=== PATIENT | female | born 1935 | race Caucasian/White ===

== ENCOUNTER 2017-04-20 09:11 | Observation (INO) ==
[2017-04-20] MEDS ORDERED: cefOXitin 2,000 MG in Water for inj. (sterile) 10 ML IVP ONE (09:36)
[2017-04-20] MEDS ORDERED: Ringers Solution, Lactated 1,000 ML IVC SCH (09:45)
--- NOTE | 2017-04-20 11:11 | History & Physical Report ---
Date of Encounter: 04/20/17 Time of Encounter: 11:11 24 Hour HP Update - Instructions Instructions: If the History and Physical is less than 30 days old and was completed prior to A.M. admission and or procedure and has NOT been updated on calendar day of procedure please complete this update prior to performing procedure. - Update Patient reports changes in Medical Condition: No Changes in examination, assessment, or condition: No Changes in Medication: No Preop tests/diagnostics Reviewed: Yes Surgery Remains Indicated: Yes Consent for Planned Operative Procedure(s) Verified: Yes - Pre-Operative Checklist Preoperative Checklist Indicated: Yes Prophylactic Antibiotic Ordered: Yes Home Medications Include Beta Samaria: No
[2017-04-20] MEDS ORDERED: *HR* Propofol 200 MG/20 ML VIAL IVP ONE (11:17)
--- NOTE | 2017-04-20 11:17 | Anesthesia Evaluation PreOp ---
Date of Encounter: 04/20/17 Time of Encounter: 11:15 - Past History Planned Operation: colostomy reversal Cardiac History: Denies any Significant Hx Pulmonary History: Denies Any Significant HX NON DESTRUCTIVE TESTING INSPECTOR History: Denies Any Significant HX Other Medical History: GERD Anesthesia History: No Prior Anesthetic Complications, Past Anesthesia ( colostomy 12/13) Alcohol Use: none Drug use: none Medications and Allergies Acetylcysteine [M-Yellbf-k-Cysteine] 600 mg PO DAILY 04/20/17 [History] Ascorbate Calcium [Vitamin C] 500 mg PO DAILY 04/20/17 [History] Ascorbate Calcium/Bioflavonoid [Piper-C 500 mg Tablet] 1 tab PO DAILY 04/20/17 [ History] Aspirin 81 mg PO DAILY 04/20/17 [History] Biotin 1 mg PO DAILY 04/20/17 [History] Calcium Carbonate/Vitamin D3 [Calcium 600 + Vit D Tablet] 1 tab PO DAILY [History] Cholecalciferol (D-3) [Vitamin D] 1,000 unit PO DAILY 04/20/17 [History] Cranberry Fruit Extract [Cranberry] 425 mg PO DAILY 04/20/17 [History] Glucosamine HCl/Chondr Castillo A Na [Cvs Glucosamine-Chondr Tablet] 1 tab PO DAILY [History] Lactobacillus Acidophilus [Acidophilus Probiotic] 1 mg PO DAILY 04/20/17 [ History] Lecithin 1,200 mg PO DAILY 04/20/17 [History] Lutein [Natural Lutein] 20 mg PO DAILY 04/20/17 [History] Lycopene 10 mg PO DAILY 04/20/17 [History] M-17/Nettle/[place]umpk/Saw Palmet [Prostate Therapy Softgel] 1 tab PO DAILY 04/20/17 [History] Magnesium Oxide [Magnesium] 500 mg PO DAILY 04/20/17 [History] [place]-3/Dha/Epa/Fish Oil [Fish Oil 1,000 mg Softgel] 1 tab PO DAILY 04/20/17 [ History] Potassium 99 mg PO DAILY 04/20/17 [History] Primidone [Mysoline] 50 mg PO DAILY 04/20/17 [History] Vit A/Vit C/Vit E/Zinc/Copper [Preservision Areds Tablet] 1 tab PO DAILY [History] Vitamin E 1,000 unit PO DAILY 04/20/17 [History] Zinc [Zinc Lozenge] 50 mg PO DAILY 04/20/17 [History] 3 Allergy/AdvReac Type Severity Reaction Status Date / Time naproxen [From Naprosyn] Allergy Gastrointestinal Verified 04/20/17 09:33 Upset - Meds/Allergy Pre-op Review Medications Reviewed: Yes Allergies Reviewed: Yes Beta Blockers on Current Med List: No Anesthesia Results - Labs Laboratory Tests 04/11/17 04/11/17 04/11/17 09:07 09:07 09:07 Hgb 14.1 Hct 42.7 Sodium 138 Potassium 4.5 BUN 16 Creatinine 0.69 Anesthesia Exam Selected Entries 04/20/17 09:44 Temperature 97.8 F Pulse Rate 95 Respiratory Rate 16 Blood Pressure 149/91 O2 Sat by Pulse Oximetry 99 Weight: 42kg NPO (# of Hours): 8 - HEENT Pupil (Motor): EOMI Mallampati: II Teeth: Normal (lower), Prosthesis (partial upper) Oral Opening: Greater than 3 - NON DESTRUCTIVE TESTING INSPECTOR LOC: Oriented NON DESTRUCTIVE TESTING INSPECTOR Motor: Normal RUE, Normal LUE, Normal RLE, Normal LLE, Normal Face NON DESTRUCTIVE TESTING INSPECTOR Sensory: Normal: RUE, LUE, RLE, LLE, Face - Cardiac Rhythm: Regular Murmur: None - Pulmonary Breath Sounds: bilateral Clear Respiratory Effort: Symmetrical Anesthesia Assess/Plan ASA Score: 2 Modified Roland Scale for Level of Consciousness: Cooperative, oriented, and tranquil Anesthetic Plan: General Monitoring Plan: Standard Monitors Recovery Plan: PACU (discussed GA, agrees to proceed)
[2017-04-20] MEDS ORDERED: *HR* Succinylcholine 200 MG/10 ML VIAL IVP ONE (11:18)
[2017-04-20] MEDS ORDERED: Lidocaine -MPF 2% 2 ML VIAL ONE (11:18)
[2017-04-20] MEDS ORDERED: Dexamethasone 4 MG/ML VIAL ONE (11:18)
[2017-04-20] MEDS ORDERED: Ketorolac 30 MG/ML VIAL ONE (11:18)
[2017-04-20] MEDS ORDERED: *HR* Rocuronium Bromide 50 MG/5 ML VIAL ONE (11:18)
[2017-04-20] MEDS ORDERED: Ondansetron 4 MG/2 ML VIAL ONE (11:18)
[2017-04-20] MEDS ORDERED: Lidocaine -MPF 4% 5 ML AMPUL ONE (11:21)
[2017-04-20] MEDS ORDERED: *HR* HYDROmorphone (PF) 1 MG/ML SYRINGE IVP PRN ×2 (12:10→16:09)
[2017-04-20] MEDS ORDERED: Ondansetron 4 MG/2 ML VIAL IVP PRN ×2 (12:10→16:09)
[2017-04-20] MEDS ORDERED: *HR* HYDROmorphone 2 MG/ML SYRINGE ONE (13:05)
[2017-04-20] MEDS ORDERED: Neostigmine Methylsulfate 3 MG/3 ML SYRINGE ONE (13:44)
[2017-04-20] MEDS ORDERED: Naloxone 0.4 MG/ML INJ IVP PRN (16:09)
[2017-04-20] MEDS: 0.9 % Sodium Chloride 1,000 ML IVC SCH (16:45)
[2017-04-20] MEDS: *HR* Heparin 5,000 UNIT/ML VIAL SQ SCH (17:29)
[2017-04-21 00:47] LABS: Hematocrit 33.4 % (35.3-44.9); Hemoglobin 11.5 g/dL (11.5-15.4)
[2017-04-21 04:47] LABS: Basophils % 0.1 %; Hemoglobin 11.5 g/dL (11.5-15.4); Immature Granulocytes % 0.5 % (0-4); Lymphocytes # 0.6 K/mcL (0.6-4.6); Lymphocytes % 4.7 %; Mean Corpuscular HGB Conc 33.8 g/dL (31.6-35.5); Mean Corpuscular Hemoglobin 31.4 pg (28.0-33.3); Mean Corpuscular Volume 92.9 fL (83.0-100.0); Mean Platelet Volume 9.3 fL (9.4-12.4); Monocytes # 1.3 K/mcL (0.0-1.3); Monocytes % 10.8 %; Neutrophils # 10.2 K/mcL (1.6-8.9); Platelet Count 212 K/mcL (140-400); Red Blood Count 3.66 M/mcL (3.82-4.97); Red Cell Distribution Width 13.2 % (11.5-14.5); Segmented Neutrophils % 83.9 %
[2017-04-21 04:58] LABS: BUN/Creatinine Ratio 15 (6-26); Blood Urea Nitrogen 9 mg/dL (7-20); Calcium 8.4 mg/dL (8.6-10.8); Carbon Dioxide 25 mEq/L (19-29); Chloride 105 mEq/L (98-109); Glucose 117 mg/dL (70-99); Osmolality,Calculated 282 (280-300); Potassium 3.5 mEq/L (3.5-4.5); Sodium 136 mEq/L (136-145); eGFR For African Americans > 60 (> 60); eGFR For Non-African Americans > 60 (> 60)
[2017-04-21] MEDS: *HR* Heparin 5,000 UNIT/ML VIAL SQ SCH (06:10)
[2017-04-21] MEDS: 0.9 % Sodium Chloride 1,000 ML IVC SCH (06:10)
--- NOTE | 2017-04-21 09:52 | Discharge Summary ---
Outpatient Proc Discharge Plan - Plan Additional Instructions: Pt may have full liguids. Pt may shower. Pt should avoid driving for the next 7 days. Pt to follow up in the office in 2 weeks. Prescriptions: Acetaminophen [Tylenol] 500 mg PO Q6HR #20 tablet Home Medications: Acetylcysteine [O-Dmoyjx-h-Cysteine] 600 mg PO DAILY 04/20/17 [History] Ascorbate Calcium [Vitamin C] 500 mg PO DAILY 04/20/17 [History] Ascorbate Calcium/Bioflavonoid [Piper-C 500 mg Tablet] 1 tab PO DAILY 04/20/17 [ History] Aspirin 81 mg PO DAILY 04/20/17 [History] Biotin 1 mg PO DAILY 04/20/17 [History] Calcium Carbonate/Vitamin D3 [Calcium 600 + Vit D Tablet] 1 tab PO DAILY [History] Cholecalciferol (D-3) [Vitamin D] 1,000 unit PO DAILY 04/20/17 [History] Cranberry Fruit Extract [Cranberry] 425 mg PO DAILY 04/20/17 [History] Glucosamine HCl/Chondr Castillo A Na [Cvs Glucosamine-Chondr Tablet] 1 tab PO DAILY [History] Lactobacillus Acidophilus [Acidophilus Probiotic] 1 mg PO DAILY 04/20/17 [ History] Lecithin 1,200 mg PO DAILY 04/20/17 [History] Lutein [Natural Lutein] 20 mg PO DAILY 04/20/17 [History] Lycopene 10 mg PO DAILY 04/20/17 [History] M-17/Nettle/Pumpk/Saw Palmet [Prostate Therapy Softgel] 1 tab PO DAILY 04/20/17 [History] Magnesium Oxide [Magnesium] 500 mg PO DAILY 04/20/17 [History] [place]-3/Dha/Epa/Fish Oil [Fish Oil 1,000 mg Softgel] 1 tab PO DAILY 04/20/17 [ History] Potassium 99 mg PO DAILY 04/20/17 [History] Primidone [Mysoline] 50 mg PO DAILY 04/20/17 [History] Vit A/Vit C/Vit E/Zinc/Copper [Preservision Areds Tablet] 1 tab PO DAILY [History] Vitamin E 1,000 unit PO DAILY 04/20/17 [History] Zinc [Zinc Lozenge] 50 mg PO DAILY 04/20/17 [History] Acetaminophen [Tylenol] 500 mg PO Q6HR #20 tablet 04/21/17 [Rx]
--- NOTE | 2017-04-21 11:20 | Operative Note ---
Date of procedure: 04/20/17 Pre-op diagnosis: History of perforated sigmoid diverticulitis Post-op diagnosis: same Procedure: Robotic takedown colostomy with 29 mm EEA stapling Anesthesia: BRUCE Surgeon: Amandeep Vazquez Estimated blood loss (cc): 5 Condition: stable Disposition: floor Procedure in Detail: After informed consent, patient was taken the operating room placed in a supine position. After adequate sedation anesthesia the abdomen was prepped and draped. The end colostomy was oversewn 3-0 silk suture. A camera port was placed just right of the umbilicus. Pneumoperitoneum was established. 13 mm cannulas placed in the right lower quadrant. 2 additional 8 mm cannulas were placed in the subxiphoid region left abdomen. 5 mm assistance port was placed in the right abdomen. Small bowel was then swept out of the pelvis. Has able to identify the rectum. Sequential dilators were used to dilate the rectum and the sigmoid colon. Once it had been adequately identified and then the end colostomy was taken down from the skin. The mucosa of the end colostomy was resected with sharp dissection. A pursestring 3-0 Prolene suture was placed with a pursestring device. A 29 mm EEA anvil was placed in the colon tied and secured. This was dropped back within the abdomen. Fascial defect was closed with looped PDS suture and kirsty. The 29 mm EEA anvil was then connected to the spear of the 29 mm stapling device. This is done at the proximal rectum. Once connected it was secured and fired. There were 2 excellent donuts identified. A intraoperative flexible sigmoidoscopy was performed to evaluate the anastomosis and check for leak. None was identified. There was an excellent anastomosis secured. At this point procedure was terminated. The ports are removed. Skin was closed with 4-0 Vicryl suture and the fascia was closed with no Vicryl suture. Marcaine was placed in the incision sites. She was taken to the floor in excellent condition.
[2017-04-21 13:59] VITALS: BP 117/74
--- NOTE | 2017-04-28 16:00 | Event Note ---
Date of Encounter: 04/28/17 Time of Encounter: 16:00 Pt discharged after an observation stay.
== END 2017-04-21 17:25 | disposition home or self-care (01) ==
LOC: SAMDAY 09:11 → INTOOBSV 15:20 → 3ANU 15:20
PROVIDERS: ADMIT Surgery; ATTEND Surgery

== ENCOUNTER 2018-09-15 22:27 | Inpatient (IN) ==
[2018-09-15 23:05] LABS: Basophils % 0.2 %; Eosinophils % 0.1 %; Hematocrit 42.5 % (35.3-44.9); Hemoglobin 14.2 g/dL (11.5-15.4); Immature Granulocytes % 0.5 % (0-4); Lymphocytes # 0.6 K/mcL (0.6-4.6); Lymphocytes % 4.7 %; Mean Corpuscular HGB Conc 33.4 g/dL (31.6-35.5); Mean Corpuscular Hemoglobin 32.2 pg (28.0-33.3); Mean Corpuscular Volume 96.4 fL (83.0-100.0); Mean Platelet Volume 9.3 fL (9.4-12.4); Monocytes % 7.7 %; Neutrophils # 11.2 K/mcL (1.6-8.9); Platelet Count 254 K/mcL (140-400); Red Blood Count 4.41 M/mcL (3.82-4.97); Red Cell Distribution Width 13.7 % (11.5-14.5); Segmented Neutrophils % 86.8 %
[2018-09-15] MEDS ORDERED: *HR* FentaNYL (PF) 100 MCG/2 ML VIAL IVP ONE ×2 (23:10→23:11)
[2018-09-15] MEDS ORDERED: Ondansetron 4 MG/2 ML VIAL IVP ONE (23:10)
[2018-09-15] MEDS ORDERED: Isovue-370 500 ML BOTTLE IVP ONE (23:10)
--- NOTE | 2018-09-15 23:14 | Emergency Department Note ---
Disposition Clinical Impression: Cecal volvulus Disposition: Admitted As Inpatient Condition: Undetermined Abdominal Pain HPI - General Chief Complaint: ED Abdominal Pain Stated Complaint: ABD Pain Time Seen by Provider: 09/15/18 22:52 Nursing Notes Reviewed: Yes Vital Signs Reviewed: Yes - History of Present Illness HPI Narrative: 83-year-old female with past medical history including bowel perforation and bowel abscess status post surgery at [facility] 2 and half years ago, brain t umor, history of diverticulitis presenting with chief complaint of abdominal pain. The patient complains of generalized abdominal pain for the past 2 days. She states it is progressively worsening and feels sharp at times. She has nausea but no vomiting. Denies fevers or chills, dysuria, hematuria, diarrhea, constipation, hematochezia, melena. She states she had a normal bowel movement 2 hours ago. She has not eaten anything today and has only had small sips of water. Patient thinks she has diverticulitis. Pain Scale: 10 - Related Data Home Medications Medication Instructions Recorded Confirmed Acetylcysteine 600 mg PO DAILY 04/20/17 04/20/17 [Y-Xwxerl-l-Cysteine] Ascorbate Calcium [Vitamin C] 500 mg PO DAILY 04/20/17 04/20/17 Ascorbate Calcium/Bioflavonoid 1 tab PO DAILY 04/20/17 04/20/17 [Piper-C 500 mg Tablet] Aspirin 81 mg PO DAILY 04/20/17 04/20/17 Biotin 1 mg PO DAILY 04/20/17 04/20/17 Calcium Carbonate/Vitamin D3 1 tab PO DAILY 04/20/17 04/20/17 [Calcium 600 + Vit D Tablet] Cholecalciferol (D-3) [Vitamin D] 1,000 unit PO DAILY 04/20/17 04/20/17 Cranberry Fruit Extract [Cranberry] 425 mg PO DAILY 04/20/17 04/20/17 Glucosamine HCl/Chondr Castillo A Na 1 tab PO DAILY 04/20/17 04/20/17 [Cvs Glucosamine-Chondr Tablet] Lactobacillus Acidophilus 1 mg PO DAILY 04/20/17 04/20/17 [Acidophilus Probiotic] Lecithin 1,200 mg PO DAILY 04/20/17 04/20/17 Lutein [Natural Lutein] 20 mg PO DAILY 04/20/17 04/20/17 Lycopene 10 mg PO DAILY 04/20/17 04/20/17 M-17/Nettle/Pumpk/Saw Palmet 1 tab PO DAILY 04/20/17 04/20/17 [Prostate Therapy Softgel] Magnesium Oxide [Magnesium] 500 mg PO DAILY 04/20/17 04/20/17 [place]-3/Dha/Epa/Fish Oil [Fish Oil 1 tab PO DAILY 04/20/17 04/20/17 1,000 mg Softgel] Potassium 99 mg PO DAILY 04/20/17 04/20/17 Primidone [Mysoline] 50 mg PO DAILY 04/20/17 04/20/17 Vit A/Vit C/Vit E/Zinc/Copper 1 tab PO DAILY 04/20/17 04/20/17 [Preservision Areds Tablet] Vitamin E 1,000 unit PO DAILY 04/20/17 04/20/17 Zinc [Zinc Lozenge] 50 mg PO DAILY 04/20/17 04/20/17 Previous Rx's Medication Instructions Recorded Acetaminophen [Tylenol] 500 mg PO Q6HR #20 tablet 04/21/17 Allergies Allergy/AdvReac Type Severity Reaction Status Date / Time naproxen [From Naprosyn] Allergy Gastrointestinal Verified 09/15/18 22:36 Upset All systems ED: reviewed and negative except as stated. Review of Systems: As Per HPI Constitutional: Denies: fever, chills ENT ED: Denies: congestion Cardiovascular: Denies: chest pain, palpitations Respiratory: Denies: cough, dyspnea Gastrointestinal: Reports: abdominal pain, nausea. Denies: vomiting, diarrhea, melena, hematochezia Neurological: Denies: headache, weakness Abdominal Pain PMH - Past Medical History Medical history: Reports: GERD, other Female Surgical History: Reports: no surgical history Psychiatric history: Reports: no psych history - Social History Smoking status: Never smoker Alcohol use: Reports: none Drug use: Reports: none Physical Exam - General Limitations: no limitations General appearance: alert, in no apparent distress - Head Head exam: atraumatic, normocephalic, normal inspection - Eye Eye exam: Present: normal appearance, EOMI - ENT ENT exam: normal exam, mucous membranes moist - Neck Neck exam: Present: normal inspection, trachea midline - Chest Chest inspection: Present: normal inspection, symmetric chest wall rise - Respiratory Respiratory exam: Present: normal lung sounds bilaterally. Absent: respiratory distress, wheezes - Cardiovascular Cardiovascular exam: Present: regular rate, normal rhythm, normal heart sounds - Abdominal Exam Abdominal exam: Present: other (Generalized abdominal tenderness, worse in the right lower quadrant. No distention, guarding, rebound) - Extremities Exam Extremities exam: Present: normal capillary refill. Absent: calf tenderness - Neurological Exam Neurological exam: Present: alert, oriented X3 - Psychiatric Psychiatric exam: Present: normal affect, normal mood - Skin Skin exam: Present: warm, dry, intact. Absent: diaphoresis, pallor Course Vital Signs Temperature 97.9 F 09/15/18 22:36 Pulse Rate 76 09/15/18 22:36 Respiratory Rate 18 09/15/18 22:36 Blood Pressure 161/81 09/15/18 22:36 O2 Sat by Pulse Oximetry 97 09/15/18 22:36 Temperature 97.9 F 09/15/18 23:13 Pulse Rate 78 09/16/18 02:38 Respiratory Rate 18 09/16/18 02:38 Blood Pressure 147/68 09/16/18 02:38 O2 Sat by Pulse Oximetry 96 09/16/18 02:38 Oxygen Delivery Oxygen Delivery Room Air Abdominal Pain - MDM Narrative Medical decision making narrative: Patient has history of bowel perforation and abscess, history of diverticulitis. She is presenting with generalized abdominal pain for the past 2 days. She does have normal bowel movements. She has nausea without vomiting. She is afebrile, normal vital signs. We will give the patient Zofran and fentanyl. We will check CT abdomen and pelvis with IV contrast to evaluate for acute pathol ogy. We will check lab work as well. The patient was pointing to her chest as well however denied chest pain. She has no coronary artery disease, his never had catheterization with stent placements. We will obtain EKG, troponin, chest x-ray as well to rule out ACS. 02:50 Labwork reviewed. Mild leukocytosis. BUN and creatinine are normal. Hepatic panel, lipase are normal. Troponin is less than 0.03. CT results and imaging reviewed. 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 There is small volume of intra-abdominal and pelvic ascites which may be related to this. Patient also has incidental finding of a nonspecific low-attenuation structure identified within the left hepatic lobe. She may require further imaging with MRI of the liver. D/w surgery, Dr. Jacob, who will admit the patient to his services. Patient is NPO. Will give IVFs. Patient states her nausea is much improved and states she has mild pain and does not want anything for pain at this time. Please update patient's niece, Aniya Canseco at [phone] or [phone] - Medical Records Medical records reviewed: Yes I reviewed the patient's medical records. - Lab Data Lab results reviewed: Yes I reviewed the patient's lab results. Result diagrams: 09/15/18 22:54 09/15/18 22:54 Lab Results 09/15/18 09/15/18 09/16/18 Range/Units 22:54 22:54 00:05 WBC 12.9 H (4.3-11.1) K/mcL RBC 4.41 (3.82-4.97) M/mcL Hgb 14.2 (11.5-15.4) g/dL Hct 42.5 (35.3-44.9) % MCV 96.4 (83.0-100.0) fL MCH 32.2 (28.0-33.3) pg MCHC 33.4 (31.6-35.5) g/dL RDW 13.7 (11.5-14.5) % Plt Count 254 (140-400) K/mcL MPV 9.3 L (9.4-12.4) fL Immature Gran % 0.5 (0-4) % Seg Neutrophils % 86.8 % Lymphocytes % 4.7 % Monocytes % 7.7 % Eosinophils % 0.1 % Basophils % 0.2 % Neutrophils # 11.2 H (1.6-8.9) K/mcL Lymphocytes # 0.6 (0.6-4.6) K/mcL Monocytes # 1.0 (0.0-1.3) K/mcL Eosinophils # 0.0 (0.0-0.6) K/mcL Basophils # 0.0 (0.0-0.2) K/mcL Sodium 134 L (136-145) mEq/L Potassium 3.8 (3.5-5.1) mEq/L Chloride 98 (98-107) mEq/L Carbon Dioxide 26 (23-29) mEq/L BUN 18 (8-23) mg/dL Creatinine 0.62 (0.60-1.20) mg/dL Est GFR ( Amer) > 60 (> 60) Est GFR (Non-Af Amer) > 60 (> 60) BUN/Creatinine Ratio 29 H (6-26) Glucose 159 H (70-105) mg/dL Calculated Osmolality 283 (280-300) Calcium 9.8 (8.6-10.3) mg/dL Total Bilirubin 0.5 (0.3-1.0) mg/dL Direct Bilirubin 0.1 (0.0-0.2) mg/dL Indirect Bilirubin 0.4 (0.0-1.2) mg/dL AST 25 (13-39) Units/L ALT 18 (7-52) Units/L Alkaline Phosphatase 68 (34-104) Units/L Troponin I 0.03 (< 0.04) ng/mL Serum Total Protein 7.4 (6.4-8.9) g/dL Albumin 4.3 (3.5-5.7) g/dL Globulin 3.1 (2.4-3.5) g/dL Albumin/Globulin Ratio 1.4 (1.1-2.2) Amylase 43 (29-103) Units/L Lipase 38 (11-82) Units/L Urine Color Yellow (Yellow) Urine Clarity Clear (Clear) Urine pH 6.0 (5.0-8.0) pH Units Ur Specific [place] 1.017 (1.010-1.025) Urine Protein Negative (Neg-Trace) mg/dL Urine Glucose (UA) Normal (Normal) mg/dL Urine Ketones Trace H (Negative) mg/dL Urine Blood Negative (Negative) Urine Nitrite Negative (Negative) Urine Bilirubin Negative (Negative) Urine Urobilinogen Normal (Normal) mg/dL Ur Leukocyte Esterase Negative (Negative) Ur Culture Indicated? NO (NO) - Radiology Data Radiology results reviewed: Yes I reviewed the patient's radiology results. 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 There is also a small volume of intra-abdominal and pelvic ascites which may be related to this as well. No perforation. There is a nonspecific low-attenuation structure identified within the left hepatic lobe measuring 3.2 x 3.1 cm in size, and 57 Hounsfield units which does not meet criteria for a simple cyst. No internal gas is seen to suggest a definite abscess. Differential considerations would include sequela of prior intra-surgery or trauma, complex cyst or neoplastic process. This would be best assessed with MR imaging of the liver, or if unable to undergo MRI, CT imaging to assess for enhancement. Clustered cystic change noted within the pancreatic head, similar to the previous study. These could possibly be related to IPMNs, and would also be best assessed with multiphase MR imaging. D/ / Scott Davalos MD / Scott Davalos MD Interpreting Provider: Scott Davalos MD - EKG Data EKG attestation: Yes I reviewed and interpreted this EKG. EKG results narrative: EKG obtained at 2244 shows sinus rhythm with heart rate 88. AK interval 147. QRS duration 80, QTc 416. No ST elevation or depression. T-wave inversion in lead 3. Attestation Statement - Attestation Attestation: I, Cecil Pozo DO, examined this patient [id number] and my medical decision-making was reviewed with Dr. Lupe Holland , Resident Physician. I agree with the documented findings, disposition and treatment plan as described except to the extent set forth below. I personally supervised and was present for the morgan/critical portions of the procedures completed by the resident documented below. Please see my progress notes for details.
[2018-09-15 23:33] LABS: Alanine Aminotransferase 18 Units/L (7-52); Albumin 4.3 g/dL (3.5-5.7); Albumin/Globulin Ratio 1.4 (1.1-2.2); Alkaline Phosphatase 68 Units/L (34-104); Amylase 43 Units/L (29-103); Aspartate Amino Transferase 25 Units/L (13-39); BUN/Creatinine Ratio 29 (6-26); Bilirubin,Direct 0.1 mg/dL (0.0-0.2); Bilirubin,Indirect 0.4 mg/dL (0.0-1.2); Bilirubin,Total 0.5 mg/dL (0.3-1.0); Blood Urea Nitrogen 18 mg/dL (8-23); Calcium 9.8 mg/dL (8.6-10.3); Carbon Dioxide 26 mEq/L (23-29); Chloride 98 mEq/L (98-107); Globulin 3.1 g/dL (2.4-3.5); Glucose 159 mg/dL (70-105); Lipase 38 Units/L (11-82); Osmolality,Calculated 283 (280-300); Potassium 3.8 mEq/L (3.5-5.1); Sodium 134 mEq/L (136-145); Total Protein 7.4 g/dL (6.4-8.9); Troponin I 0.03 ng/mL (< 0.04); eGFR For Non-African Americans > 60 (> 60)
[2018-09-16 00:19] LABS: Bilirubin,Urine Negative (Negative); Blood,Urine Negative (Negative); Clarity,Urine Clear (Clear); Color,Urine Yellow (Yellow); Glucose,Urine (UA) Normal (Normal); Ketones,Urine Trace mg/dL (Negative); Leukocyte Esterase,Urine Negative (Negative); Nitrite,Urine Negative (Negative); Protein,Urine Negative (Neg-Trace); Specific Gravity,Urine 1.017 (1.010-1.025); Urobilinogen,Urine Normal (Normal)
--- NOTE | 2018-09-16 00:58 | Emergency Department Note ---
Disposition Clinical Impression: Cecal volvulus Abdominal pain Qualifiers: Abdominal location: generalized Qualified Code(s): R10.84 - Generalized abdominal pain Disposition: Admitted As Inpatient Condition: Fair Time of Disposition: 03:26 General Adult HPI - General Chief complaint: ED Abdominal Pain Stated complaint: ABD Pain Time Seen by Provider: 09/15/18 22:52 Source: patient, family Limitations: no limitations - History of Present Illness Pain Scale: 8 - Related Data Home Medications Medication Instructions Recorded Confirmed Acetylcysteine 600 mg PO DAILY 04/20/17 04/20/17 [F-Uhmrut-y-Cysteine] Ascorbate Calcium [Vitamin C] 500 mg PO DAILY 04/20/17 04/20/17 Ascorbate Calcium/Bioflavonoid 1 tab PO DAILY 04/20/17 04/20/17 [Piper-C 500 mg Tablet] Aspirin 81 mg PO DAILY 04/20/17 04/20/17 Biotin 1 mg PO DAILY 04/20/17 04/20/17 Calcium Carbonate/Vitamin D3 1 tab PO DAILY 04/20/17 04/20/17 [Calcium 600 + Vit D Tablet] Cholecalciferol (D-3) [Vitamin D] 1,000 unit PO DAILY 04/20/17 04/20/17 Cranberry Fruit Extract [Cranberry] 425 mg PO DAILY 04/20/17 04/20/17 Glucosamine HCl/Chondr Castillo A Na 1 tab PO DAILY 04/20/17 04/20/17 [Cvs Glucosamine-Chondr Tablet] Lactobacillus Acidophilus 1 mg PO DAILY 04/20/17 04/20/17 [Acidophilus Probiotic] Lecithin 1,200 mg PO DAILY 04/20/17 04/20/17 Lutein [Natural Lutein] 20 mg PO DAILY 04/20/17 04/20/17 Lycopene 10 mg PO DAILY 04/20/17 04/20/17 M-17/Nettle/Pumpk/Saw Palmet 1 tab PO DAILY 04/20/17 04/20/17 [Prostate Therapy Softgel] Magnesium Oxide [Magnesium] 500 mg PO DAILY 04/20/17 04/20/17 [place]-3/Dha/Epa/Fish Oil [Fish Oil 1 tab PO DAILY 04/20/17 04/20/17 1,000 mg Softgel] Potassium 99 mg PO DAILY 04/20/17 04/20/17 Primidone [Mysoline] 50 mg PO DAILY 04/20/17 04/20/17 Vit A/Vit C/Vit E/Zinc/Copper 1 tab PO DAILY 04/20/17 04/20/17 [Preservision Areds Tablet] Vitamin E 1,000 unit PO DAILY 04/20/17 04/20/17 Zinc [Zinc Lozenge] 50 mg PO DAILY 04/20/17 04/20/17 Previous Rx's Medication Instructions Recorded Acetaminophen [Tylenol] 500 mg PO Q6HR #20 tablet 04/21/17 Allergies Allergy/AdvReac Type Severity Reaction Status Date / Time naproxen [From Naprosyn] Allergy Gastrointestinal Verified 09/15/18 22:36 Upset Constitutional: Denies: fever, chills ENT ED: Denies: congestion Cardiovascular: Denies: chest pain, palpitations Respiratory: Denies: cough, dyspnea Gastrointestinal: Reports: abdominal pain, nausea. Denies: vomiting, diarrhea, melena, hematochezia Neurological: Denies: headache, weakness Past Medical History - Past Medical History Medical history: Reports: GERD, other Surgical history: Reports: colectomy, colostomy Psychiatric history: Reports: no psych history TRAFFIC CONTROL TECHNICIAN history: Reports: no TRAFFIC CONTROL TECHNICIAN history - Social History Smoking Status: Never smoker Smokeless Tobacco Status: No Alcohol use: Reports: none Drug use: Reports: none Physical Exam - General Limitations: no limitations General appearance: alert, in no apparent distress Course Vital Signs Temperature 97.9 F 09/15/18 22:36 Pulse Rate 76 09/15/18 22:36 Respiratory Rate 18 09/15/18 22:36 Blood Pressure 161/81 09/15/18 22:36 O2 Sat by Pulse Oximetry 97 09/15/18 22:36 Temperature 97.9 F 09/15/18 23:13 Pulse Rate 78 09/16/18 02:38 Respiratory Rate 18 09/16/18 02:38 Blood Pressure 147/68 09/16/18 02:38 O2 Sat by Pulse Oximetry 96 09/16/18 02:38 Oxygen Delivery Oxygen Delivery Room Air Medical Decision Making - Lab Data Result diagrams: 09/15/18 22:54 09/15/18 22:54 Lab Results 09/15/18 09/15/18 09/16/18 Range/Units 22:54 22:54 00:05 WBC 12.9 H (4.3-11.1) K/mcL RBC 4.41 (3.82-4.97) M/mcL Hgb 14.2 (11.5-15.4) g/dL Hct 42.5 (35.3-44.9) % MCV 96.4 (83.0-100.0) fL MCH 32.2 (28.0-33.3) pg MCHC 33.4 (31.6-35.5) g/dL RDW 13.7 (11.5-14.5) % Plt Count 254 (140-400) K/mcL MPV 9.3 L (9.4-12.4) fL Immature Gran % 0.5 (0-4) % Seg Neutrophils % 86.8 % Lymphocytes % 4.7 % Monocytes % 7.7 % Eosinophils % 0.1 % Basophils % 0.2 % Neutrophils # 11.2 H (1.6-8.9) K/mcL Lymphocytes # 0.6 (0.6-4.6) K/mcL Monocytes # 1.0 (0.0-1.3) K/mcL Eosinophils # 0.0 (0.0-0.6) K/mcL Basophils # 0.0 (0.0-0.2) K/mcL PT (9.4-12.1) Seconds INR Sodium 134 L (136-145) mEq/L Potassium 3.8 (3.5-5.1) mEq/L Chloride 98 (98-107) mEq/L Carbon Dioxide 26 (23-29) mEq/L BUN 18 (8-23) mg/dL Creatinine 0.62 (0.60-1.20) mg/dL Est GFR ( Amer) > 60 (> 60) Est GFR (Non-Af Amer) > 60 (> 60) BUN/Creatinine Ratio 29 H (6-26) Glucose 159 H (70-105) mg/dL Calculated Osmolality 283 (280-300) Calcium 9.8 (8.6-10.3) mg/dL Total Bilirubin 0.5 (0.3-1.0) mg/dL Direct Bilirubin 0.1 (0.0-0.2) mg/dL Indirect Bilirubin 0.4 (0.0-1.2) mg/dL AST 25 (13-39) Units/L ALT 18 (7-52) Units/L Alkaline Phosphatase 68 (34-104) Units/L Troponin I 0.03 (< 0.04) ng/mL Serum Total Protein 7.4 (6.4-8.9) g/dL Albumin 4.3 (3.5-5.7) g/dL Globulin 3.1 (2.4-3.5) g/dL Albumin/Globulin Ratio 1.4 (1.1-2.2) Amylase 43 (29-103) Units/L Lipase 38 (11-82) Units/L Urine Color Yellow (Yellow) Urine Clarity Clear (Clear) Urine pH 6.0 (5.0-8.0) pH Units Ur Specific [place] 1.017 (1.010-1.025) Urine Protein Negative (Neg-Trace) mg/dL Urine Glucose (UA) Normal (Normal) mg/dL Urine Ketones Trace H (Negative) mg/dL Urine Blood Negative (Negative) Urine Nitrite Negative (Negative) Urine Bilirubin Negative (Negative) Urine Urobilinogen Normal (Normal) mg/dL Ur Leukocyte Esterase Negative (Negative) Ur Culture Indicated? NO (NO) 09/16/18 Range/Units 03:03 WBC (4.3-11.1) K/mcL RBC (3.82-4.97) M/mcL Hgb (11.5-15.4) g/dL Hct (35.3-44.9) % MCV (83.0-100.0) fL MCH (28.0-33.3) pg MCHC (31.6-35.5) g/dL RDW (11.5-14.5) % Plt Count (140-400) K/mcL MPV (9.4-12.4) fL Immature Gran % (0-4) % Seg Neutrophils % % Lymphocytes % % Monocytes % % Eosinophils % % Basophils % % Neutrophils # (1.6-8.9) K/mcL Lymphocytes # (0.6-4.6) K/mcL Monocytes # (0.0-1.3) K/mcL Eosinophils # (0.0-0.6) K/mcL Basophils # (0.0-0.2) K/mcL PT 10.9 (9.4-12.1) Seconds INR 1.0 Sodium (136-145) mEq/L Potassium (3.5-5.1) mEq/L Chloride (98-107) mEq/L Carbon Dioxide (23-29) mEq/L BUN (8-23) mg/dL Creatinine (0.60-1.20) mg/dL Est GFR ( Amer) (> 60) Est GFR (Non-Af Amer) (> 60) BUN/Creatinine Ratio (6-26) Glucose (70-105) mg/dL Calculated Osmolality (280-300) Calcium (8.6-10.3) mg/dL Total Bilirubin (0.3-1.0) mg/dL Direct Bilirubin (0.0-0.2) mg/dL Indirect Bilirubin (0.0-1.2) mg/dL AST (13-39) Units/L ALT (7-52) Units/L Alkaline Phosphatase (34-104) Units/L Troponin I (< 0.04) ng/mL Serum Total Protein (6.4-8.9) g/dL Albumin (3.5-5.7) g/dL Globulin (2.4-3.5) g/dL Albumin/Globulin Ratio (1.1-2.2) Amylase (29-103) Units/L Lipase (11-82) Units/L Urine Color (Yellow) Urine Clarity (Clear) Urine pH (5.0-8.0) pH Units Ur Specific [place] (1.010-1.025) Urine Protein (Neg-Trace) mg/dL Urine Glucose (UA) (Normal) mg/dL Urine Ketones (Negative) mg/dL Urine Blood (Negative) Urine Nitrite (Negative) Urine Bilirubin (Negative) Urine Urobilinogen (Normal) mg/dL Ur Leukocyte Esterase (Negative) Ur Culture Indicated? (NO) Attestation Statement - Attestation Attestation: I, Cecil Pozo DO, examined this patient [id number] and my medical decision-making was reviewed with Dr. Lupe Holland , Resident Physician. I agree with the documented findings, disposition and treatment plan as described except to the extent set forth below. I personally supervised and was present for the morgan/critical portions of the procedures completed by the resident documented below. Please see my progress notes for details. 82-year-old female presents emergency room for evaluation of abdominal pain that starts in the epigastrium and goes down into her lower abdomen. She denies any recent fevers or chills. Denies any nausea vomiting. Denies any chest pain or shortness of breath. She has not had any headache or vision change. Denies any falls trauma or injury. No recent illnesses noted at this point or travel outside the country. Patient makes all of her own food at home and does not yet restaurants. Vital signs otherwise currently stable. Patient is resting comfortably in the bed. She does not show any acute signs of distress or illness. Head is atraumatic. Oropharynx is patent. Trachea is midline. No stridor no trismus. Mucous membranes are slightly dry. Lungs are clear. Heart is regular. Abdomen is soft with mild tenderness in the epigastrium that radiates in the lower abdomen. Bowel sounds are present. There is no guarding no rigidity no peritoneal symptoms. No point tenderness. No CVA tenderness. Patient denies any vaginal discharge or bleeding. She denies any burning with urination or changes in her bowel habits outside of loose stool. Extremities are normal. No rashes or lesions noted at this time. Patient is concerning for intra-abdominal pathology including peptic ulcer, pancreatitis, diverticular disease or bowel related issue. EKG and chest x-ray will also be collected to rule out any cardiac or pulmonary related issues. Dimension control nausea medication pain medication will be given as needed. See detailed documentation the physical exam, medical intervention, medical decision-making and disposition in the resident physician's note. No critical care pad the patient's treatment course at this time. 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 Based on her history of diverticulitis and colon resection with reversal, surgical consultation was placed. The surgeon on-call Dr. Jacob reviewed the case and was going to the patient primarily to his service for surgical intervention management. No antibiotics were requested at this point. Detailed review the presentation symptoms were discussed. Patient is otherwise clinically stable. Admission process to be established at this time. Patient's labs otherwise unremarkable and do not need immediate intervention. Patient's family was informed. Patient will be monitored here in the emergency department to the admission process is completed. Patient has lactic acid and coagulation studies added on at this time. No other acute signs of decompensation or requirement for medical intervention were reviewed at this point. Patient will be monitored here in the emergency department is admission process is completed.
[2018-09-16] MEDS ORDERED: 0.9 % Sodium Chloride 1,000 ML IVC ONE (02:55)
[2018-09-16] MEDS ORDERED: Ondansetron 4 MG/2 ML VIAL IVP PRN (03:05)
[2018-09-16] MEDS ORDERED: MORPHINE SUL Oral CONC 10 MG/0.5 ML ORAL.SYG SL PRN (03:05)
[2018-09-16 03:24] LABS: Prothrombin Time 10.9 Seconds (9.4-12.1)
[2018-09-16] MEDS ORDERED: Ondansetron 4 MG/2 ML VIAL IVP ONE (03:42)
[2018-09-16] MEDS ORDERED: *HR* FentaNYL (PF) 100 MCG/2 ML VIAL IVP ONE (03:42)
[2018-09-16] MEDS: 0.9 % Sodium Chloride 1,000 ML IVC SCH ×3 (05:25→13:24)
[2018-09-16] MEDS ORDERED: *HR* Heparin 5,000 UNIT/ML VIAL SQ SCH (06:00)
[2018-09-16] MEDS ORDERED: Pantoprazole 40 MG VIAL IVP SCH (06:30)
--- NOTE | 2018-09-16 07:28 | Acute Care Surgery H&P ---
Date of Encounter: 09/16/18 Time of Encounter: 07:25 Assessment and Plan (1) Cecal volvulus Current Visit: Yes Status: Acute The assessment and plan as outlined above was discussed with the patient and/or family members who expressed understanding and agreement. All questions were answered. I explained to the patient that I personally reviewed her CT scan images and report. There is concern about a possible colonic volvulus and given her pain symptoms and the abnormal CT scan findings I do think it would be appropriate to proceed with exploration and possible colonic resection. Risk and benefits discussed with the patient and she agrees with the above plan. History of Present Illness Chief complaint: Abdominal pain HPI: Ms. Olivas is a 83 year old female with a past medical history significant for Mccullough's Palsy, spinal stenosis, and GERD states that she has been having a bdominal pain for approximately 2 days. She points throughout her entire abdomen and states that initially she had some nausea but states that she did have what sounds like dry heaves with no copious amount of vomiting. She normally has a bowel movement twice a day and denies any diarrhea or const ipation symptoms. She states that she had a normal bowel movement yesterday evening. She denies any rectal bleeding. Because of her continued abdominal pain symptoms she presented to [facility] for further evaluation. Past Med Surg Social Fam HX - Past Medical History Medical history: GERD, other Additional medical history: bells palsey, spinal stenosis Psychiatric history: no psych history - Past Surgical History Surgical History: colectomy, colostomy Additional surgical history: Sigmoid resection/colostomy 2017, Colostomy reversal 2017 - Social History Smoking Status: Never smoker Smokeless Tobacco Status: No Alcohol use: none Drug use: none - Family History Father History Unknown: Yes Hx Family Cardiac Disorders: No Hx Family Respiratory Disorders: No Hx Family Cancer: Yes (colon CA) Hx Family GI Disorders: Yes (CA) Hx Family Endocrine Disorder: No Hx Family Neuromuscular Disorders: No Hx Family Neurologic Disorders: No Hx Family HEENT Disorders: No Hx Family Autoimmune Disorders: No Medications and Allergies Acetylcysteine [U-Umjzoo-l-Cysteine] 600 mg PO DAILY 04/20/17 [History] Ascorbate Calcium [Vitamin C] 500 mg PO DAILY 04/20/17 [History] Ascorbate Calcium/Bioflavonoid [Piper-C 500 mg Tablet] 1 tab PO DAILY 04/20/17 [History] Aspirin 81 mg PO DAILY 04/20/17 [History] Biotin 1 mg PO DAILY 04/20/17 [History] Calcium Carbonate/Vitamin D3 [Calcium 600 + Vit D Tablet] 1 tab PO DAILY 04/20/17 [History] Cholecalciferol (D-3) [Vitamin D] 1,000 unit PO DAILY 04/20/17 [History] Cranberry Fruit Extract [Cranberry] 425 mg PO DAILY 04/20/17 [History] Glucosamine HCl/Chondr Castillo A Na [Cvs Glucosamine-Chondr Tablet] 1 tab PO DAILY 04/20/17 [History] Lactobacillus Acidophilus [Acidophilus Probiotic] 1 mg PO DAILY 04/20/17 [History] Lecithin 1,200 mg PO DAILY 04/20/17 [History] Lutein [Natural Lutein] 20 mg PO DAILY 04/20/17 [History] Lycopene 10 mg PO DAILY 04/20/17 [History] M-17/Nettle/Pumpk/Saw Palmet [Prostate Therapy Softgel] 1 tab PO DAILY 04/20/17 [History] Magnesium Oxide [Magnesium] 500 mg PO DAILY 04/20/17 [History] [place]-3/Dha/Epa/Fish Oil [Fish Oil 1,000 mg Softgel] 1 tab PO DAILY 04/20/17 [History] Potassium 99 mg PO DAILY 04/20/17 [History] Primidone [Mysoline] 50 mg PO DAILY 04/20/17 [History] Vit A/Vit C/Vit E/Zinc/Copper [Preservision Areds Tablet] 1 tab PO DAILY 04/20/17 [History] Vitamin E 1,000 unit PO DAILY 04/20/17 [History] Zinc [Zinc Lozenge] 50 mg PO DAILY 04/20/17 [History] Acetaminophen [Tylenol] 500 mg PO Q6HR #20 tablet 04/21/17 [Rx] Allergy/AdvReac Type Severity Reaction Status Date / Time naproxen [From Naprosyn] Allergy Gastrointestinal Verified 09/15/18 22:36 Upset Review of Systems All systems PM: reviewed and no additional remarkable complaints except as stated All systems PM: The remainder of the systems were reviewed and are negative General Surgery Exam Initial Vital Signs Temp Pulse Resp BP Pulse Ox 97.9 F 76 18 161/81 97 09/15/18 22:36 09/15/18 22:36 09/15/18 22:36 09/15/18 22:36 09/15/18 22:36 - Eyes PERRL, normal ocular movement - Respiratory normal expansion, normal respiratory effort, clear to auscultation - Abdomen Abdomen general surgery: Present: soft (midline incision well healed, no hernia. Tympany), tender - Musculoskeletal Present: other (no clubbing, cyanosis, or edema) - Psychiatric Psychiatric general surgery: Present: A&Ox3, oriented to person, oriented to place, oriented to time Results - Labs 09/15/18 22:54 09/15/18 22:54 Abnormal lab results WBC 12.9 K/mcL (4.3-11.1) H 09/15/18 22:54 MPV 9.3 fL (9.4-12.4) L 09/15/18 22:54 Neutrophils # 11.2 K/mcL (1.6-8.9) H 09/15/18 22:54 Sodium 134 mEq/L (136-145) L 09/15/18 22:54 BUN/Creatinine Ratio 29 (6-26) H 09/15/18 22:54 Glucose 159 mg/dL (70-105) H 09/15/18 22:54 Urine Ketones Trace mg/dL (Negative) H 09/16/18 00:05 Diabetes panel 09/15/18 Range/Units 22:54 Sodium 134 L (136-145) mEq/L Potassium 3.8 (3.5-5.1) mEq/L Chloride 98 (98-107) mEq/L Carbon Dioxide 26 (23-29) mEq/L BUN 18 (8-23) mg/dL Creatinine 0.62 (0.60-1.20) mg/dL Glucose 159 H (70-105) mg/dL Calcium 9.8 (8.6-10.3) mg/dL AST 25 (13-39) Units/L ALT 18 (7-52) Units/L Alkaline Phosphatase 68 (34-104) Units/L Albumin 4.3 (3.5-5.7) g/dL Calcium panel 09/15/18 Range/Units 22:54 Calcium 9.8 (8.6-10.3) mg/dL Albumin 4.3 (3.5-5.7) g/dL Pituitary panel 09/15/18 Range/Units 22:54 Sodium 134 L (136-145) mEq/L Potassium 3.8 (3.5-5.1) mEq/L Chloride 98 (98-107) mEq/L Carbon Dioxide 26 (23-29) mEq/L BUN 18 (8-23) mg/dL Creatinine 0.62 (0.60-1.20) mg/dL Glucose 159 H (70-105) mg/dL Calcium 9.8 (8.6-10.3) mg/dL Adrenal panel 09/15/18 Range/Units 22:54 Sodium 134 L (136-145) mEq/L Potassium 3.8 (3.5-5.1) mEq/L Chloride 98 (98-107) mEq/L Carbon Dioxide 26 (23-29) mEq/L BUN 18 (8-23) mg/dL Creatinine 0.62 (0.60-1.20) mg/dL Glucose 159 H (70-105) mg/dL Calcium 9.8 (8.6-10.3) mg/dL Total Bilirubin 0.5 (0.3-1.0) mg/dL AST 25 (13-39) Units/L ALT 18 (7-52) Units/L Alkaline Phosphatase 68 (34-104) Units/L Albumin 4.3 (3.5-5.7) g/dL All other labs normal. - Imaging CT scan - abdomen: report reviewed, image reviewed (CT scan images and report reviewed personally. Question of a possible colonic volvulus (unsure this a cecal or not based upon the patient's previous surgery). No free air and no signs of abscess.)
--- NOTE | 2018-09-16 08:22 | Anesthesia Evaluation PreOp ---
Date of Encounter: 09/16/18 Time of Encounter: 09:42 - Past History Planned Operation: colonic resection Cardiac History: Denies any Significant Hx Pulmonary History: Denies Any Significant HX TOE POUNDER History: Other (spinal stenosis, hx [place] Palsy) Other Medical History: GERD Anesthesia History: Past Anesthesia (colostomy, colostomy reversal) Alcohol Use: none Drug use: none Medications and Allergies Acetylcysteine [K-Alsoxi-e-Cysteine] 600 mg PO DAILY 04/20/17 [History] Ascorbate Calcium [Vitamin C] 500 mg PO DAILY 04/20/17 [History] Ascorbate Calcium/Bioflavonoid [Piper-C 500 mg Tablet] 1 tab PO DAILY 04/20/17 [History] Aspirin 81 mg PO DAILY 04/20/17 [History] Biotin 1 mg PO DAILY 04/20/17 [History] Calcium Carbonate/Vitamin D3 [Calcium 600 + Vit D Tablet] 1 tab PO DAILY 04/20/17 [History] Cholecalciferol (D-3) [Vitamin D] 1,000 unit PO DAILY 04/20/17 [History] Cranberry Fruit Extract [Cranberry] 425 mg PO DAILY 04/20/17 [History] Glucosamine HCl/Chondr Castillo A Na [Cvs Glucosamine-Chondr Tablet] 1 tab PO DAILY 04/20/17 [History] Lactobacillus Acidophilus [Acidophilus Probiotic] 1 mg PO DAILY 04/20/17 [History] Lecithin 1,200 mg PO DAILY 04/20/17 [History] Lutein [Natural Lutein] 20 mg PO DAILY 04/20/17 [History] Lycopene 10 mg PO DAILY 04/20/17 [History] M-17/Nettle/Pumpk/Saw Palmet [Prostate Therapy Softgel] 1 tab PO DAILY 04/20/17 [History] Magnesium Oxide [Magnesium] 500 mg PO DAILY 04/20/17 [History] [place]-3/Dha/Epa/Fish Oil [Fish Oil 1,000 mg Softgel] 1 tab PO DAILY 04/20/17 [History] Potassium 99 mg PO DAILY 04/20/17 [History] Primidone [Mysoline] 50 mg PO DAILY 04/20/17 [History] Vit A/Vit C/Vit E/Zinc/Copper [Preservision Areds Tablet] 1 tab PO DAILY 04/20/17 [History] Vitamin E 1,000 unit PO DAILY 04/20/17 [History] Zinc [Zinc Lozenge] 50 mg PO DAILY 04/20/17 [History] Acetaminophen [Tylenol] 500 mg PO Q6HR #20 tablet 04/21/17 [Rx] Allergy/AdvReac Type Severity Reaction Status Date / Time naproxen [From Naprosyn] Allergy Gastrointestinal Verified 09/15/18 22:36 Upset - Meds/Allergy Pre-op Review Medications Reviewed: Yes Allergies Reviewed: Yes Beta Blockers on Current Med List: No Anesthesia Results - Labs 09/15/18 22:54 09/15/18 22:54 - Imaging EKG: report reviewed, image reviewed (SR) Anesthesia Exam Last Vital Signs Temp 98.0 F 09/16/18 06:51 Pulse 71 09/16/18 06:51 Resp 15 09/16/18 06:51 BP 117/67 09/16/18 06:51 Pulse Ox 96 09/16/18 06:51 Weight: 47 kg NPO (# of Hours): > 8 hrs - HEENT Pupil (Motor): Pupils equal, EOMI Mallampati: II Teeth: Missing Denture Type: Upper: Partial Oral Opening: Greater than 3 - TOE POUNDER LOC: Oriented - Cardiac Rhythm: Regular Murmur: None - Pulmonary Breath Sounds: bilateral Clear Respiratory Effort: Symmetrical Anesthesia Assess/Plan ASA Score: 2 Level of consciousness: Cooperative Anesthetic Plan: MAC Monitoring Plan: Standard Monitors Recovery Plan: PACU
[2018-09-16] MEDS ORDERED: *HR* FentaNYL (PF) 100 MCG/2 ML VIAL ONE ×2 (09:37→10:34)
[2018-09-16] MEDS ORDERED: *HR* Propofol 200 MG/20 ML VIAL IVP ONE (09:37)
[2018-09-16] MEDS ORDERED: Lidocaine -MPF 2% 2 ML VIAL ONE (09:41)
[2018-09-16] MEDS ORDERED: *HR* Succinylcholine 200 MG/10 ML VIAL IVP ONE (09:41)
[2018-09-16] MEDS ORDERED: Dexamethasone 4 MG/ML VIAL ONE (09:41)
[2018-09-16] MEDS ORDERED: *HR* Rocuronium Bromide 50 MG/5 ML VIAL ONE (09:41)
[2018-09-16] MEDS ORDERED: Ondansetron 4 MG/2 ML VIAL ONE (09:41)
[2018-09-16] MEDS ORDERED: EPHEDrine 50 MG/ML VIAL ONE (09:42)
[2018-09-16] MEDS ORDERED: Ringers Solution, Lactated 1,000 ML ONE (09:44)
[2018-09-16] MEDS ORDERED: Neostigmine Methylsulfate 3 MG/3 ML SYRINGE ONE (09:47)
[2018-09-16] MEDS ORDERED: *HR* PHENYLEPHRINE 1,000 MCG/10 ML SYRINGE IVP ONE (09:47)
[2018-09-16] MEDS ORDERED: CefOXitin 2,000 MG VIAL ONE (10:08)
[2018-09-16] MEDS ORDERED: *HR* HYDROmorphone (PF) 1 MG/ML SYRINGE IVP PRN (10:31)
[2018-09-16] MEDS ORDERED: cefOXitin 2,000 MG in Water for inj. (sterile) 20 ML 20 ML IVP ONE (10:50)
[2018-09-16] MEDS ORDERED: CefOXitin 1,000 MG VIAL ONE (11:15)
[2018-09-16] MEDS ORDERED: *HR* Morphine 10 MG/ML VIAL ONE (11:20)
--- NOTE | 2018-09-16 11:42 | Operative Note ---
Date of procedure: 09/16/18 Pre-op diagnosis: cecal volvulus Post-op diagnosis: same Procedure: 1. Exploratory celiotomy. 2. Right colectomy. Anesthesia: GETA Surgeon: [place] Jacob Was there an treasury assistant present: Yes Grinder Hand: Meche Franco Estimated blood loss (cc): 20 Specimen: right colon Condition: stable Disposition: PACU Procedure in Detail: Date of surgery: 09/16/18 After properly identifying the patient, the patient was brought to the operating room and placed in the supine position. After proper IV sedation was achieved followed by general endotracheal intubation, the patient's abdomen was prepped and draped in normal sterile fashion. A timeout was performed noting the patient's name and type of procedure to be performed. The patient had a infraumbilical midline incision from a previous sigmoid resection and colostomy. A 10 blade scalpel was used to make an incision approximate 4 finger breaths below the xiphoid process extending to just below the umbilicus. Bovie cauterization was used to dissected the subcutaneous tissue to the abdominal wall fascia was encountered and incised. A Jamie wound protector was placed within the wound and retractor was used to retract the abdominal wall laterally to the left so that the portion of the colon that was distended by CT scan could be visualized. There was a very largely dilated segment of the colon extending up from the spleen down towards the pelvic brim. This portion of the bowel was able to be carefully extruded through the open incision which demonstrated that this was an internal hernia or cecal volvulus due to an adhesive band. Bovie cauterization was used to transect the adhesive band and the right colon was detorsed. Because cecal volvulus have a high risk of reoccurring the decision was made to go ahead and transect the segment of the colon, i.e. perform a right colectomy. The terminal ileum was identified and dissected away from the mesentery with Bovie cauterization and usage of a handheld LigaSure. The segment of the bowel was then transected with a LUIS stapler. The lateral sidewall attachments of the right colon were dissected with Bovie cauterization allowing for visualization of a normal-appearing non-dialated segment of the colon near the level of the hepatic flexure. This was dissected from the mesentery with a Seema clamp and the segment of the colon was transected with a LUIS stapler. The intervening mesentery was transected with a handheld LigaSure. The segment of the bowel was then removed for pathological inspection and a decision was made to perform a ujen-er-yxut anastomosis between the distal ileum and the hepatic flexure. This was performed with a LUIS stapler and the enterotomy was then closed with a TA stapler. The mesenteric defect was reapproximated with a running 3-0 Vicryl suture and the suture line was imbricated with interrupted 3-0 silk sutures. A 3-0 silk suture was placed along the "crotch" of the anastomosis. The bowel segment was placed back within the abdomen and the abdomen was irrigated with normal saline solution containing Mefoxin. The wound protector was then removed and the abdominal wall fascia was reapproximated with #1 looped PDS sutures 2. The subcutaneous tissue was reapproximated with 2-0 Vicryl sutures and the epidermal and dermal layers were reapproximated with kirsty. Needle, sponge, and instrument counts were correct 2 and the incision was covered with 4 x 4 gauze. The patient was aroused from IV sedation, extubated in the operating room without complication, and transported to the recovery room stable condition.
[2018-09-16] MEDS: *HR* FentaNYL (PF) 100 MCG/2 ML VIAL IVP PRN ×2 (12:02→12:18)
--- NOTE | 2018-09-16 12:28 | Anesthesia Evaluation Post Op ---
Date of Encounter: 09/16/18 Time of Encounter: 12:28 - Vital Signs Vital Signs: Last Vital Signs Temp 99.5 F 09/16/18 12:20 Pulse 74 09/16/18 12:20 Resp 14 09/16/18 12:20 BP 168/80 09/16/18 12:20 Pulse Ox 98 09/16/18 12:20 - Lungs Lungs: Clear Ascult./Percussion - Airway Airway: Non-obstructed - Cardiovascular Regular Rate - Mental Status Mental Status: Alert & Oriented, Answers Appropriately - Pain Pain Scale: 4 - Nausea Vomiting Nausea Vomiting: Not Present - Hydration Hydration: NPO, [place] catheter - Discharge PostOp Status: Transfer Patient to floor
[2018-09-16] MEDS ORDERED: Naloxone 0.4 MG/ML INJ IVP PRN (12:52)
[2018-09-16] MEDS ORDERED: Acetaminophen IV 1,000 MG/100 ML INFUS..BTL IVPB SCH (12:52)
[2018-09-16] MEDS: MORPHINE SUL Oral CONC 10 MG/0.5 ML ORAL.SYG SL PRN (13:22)
[2018-09-16] MEDS: Ondansetron 4 MG/2 ML VIAL IVP PRN (13:29)
[2018-09-16] MEDS: cefOXitin 1,000 MG in Water for inj. (sterile) 20 ML 10 ML IVP SCH (16:01)
[2018-09-16] MEDS: Acetaminophen IV 1,000 MG/100 ML INFUS..BTL IVPB SCH (20:18)
[2018-09-17] MEDS: cefOXitin 1,000 MG in Water for inj. (sterile) 20 ML 10 ML IVP SCH ×2 (00:08→07:43)
[2018-09-17] MEDS: 0.9 % Sodium Chloride 1,000 ML IVC SCH ×2 (01:57→13:51)
[2018-09-17] MEDS: Acetaminophen IV 1,000 MG/100 ML INFUS..BTL IVPB SCH ×4 (01:58→20:16)
[2018-09-17] MEDS: Pantoprazole 40 MG VIAL IVP SCH (05:11)
[2018-09-17] MEDS: *HR* Heparin 5,000 UNIT/ML VIAL SQ SCH ×2 (05:11→18:01)
[2018-09-17 07:03] LABS: Basophils % 0.1 %; Eosinophils # 0.1 K/mcL (0.0-0.6); Eosinophils % 0.5 %; Hemoglobin 11.6 g/dL (11.5-15.4); Immature Granulocytes % 0.3 % (0-4); Lymphocytes # 0.6 K/mcL (0.6-4.6); Lymphocytes % 6.3 %; Mean Corpuscular HGB Conc 33.1 g/dL (31.6-35.5); Mean Corpuscular Hemoglobin 32.8 pg (28.0-33.3); Mean Corpuscular Volume 98.9 fL (83.0-100.0); Mean Platelet Volume 9.7 fL (9.4-12.4); Monocytes # 1.3 K/mcL (0.0-1.3); Monocytes % 13.7 %; Neutrophils # 7.2 K/mcL (1.6-8.9); Platelet Count 191 K/mcL (140-400); Red Blood Count 3.54 M/mcL (3.82-4.97); Red Cell Distribution Width 14.2 % (11.5-14.5); Segmented Neutrophils % 79.1 %
[2018-09-17 07:24] LABS: BUN/Creatinine Ratio 25 (6-26); Blood Urea Nitrogen 13 mg/dL (8-23); Calcium 8.2 mg/dL (8.6-10.3); Carbon Dioxide 27 mEq/L (23-29); Chloride 106 mEq/L (98-107); Glucose 109 mg/dL (70-105); Osmolality,Calculated 291 (280-300); Potassium 4.4 mEq/L (3.5-5.1); Sodium 140 mEq/L (136-145); eGFR For Non-African Americans > 60 (> 60)
--- NOTE | 2018-09-17 09:53 | Electrocardiograph Report ---
[address] [address] Test Date: 2018-09-15 Pat Name: Malia Olivas Department: 104 Room: 2A Gender: F Clinical Support Nurse: : 1935 Requested By: Cecil Pozo Order Number: [id number] Reading MD: Arvind Castro Measurements Intervals Carpio Rate: 80 P: 40 NM: 147 QRS: 7 QRSD: 80 T: 43 QT: 380 QTc: 416 Interpretive Statements SINUS RHYTHM Electronically Signed On 09-17-2018 9:51:57 EDT by Arvind Castro
--- NOTE | 2018-09-17 10:19 | AcuteCareSurgery Progress Note ---
<Bk Coe - Last Filed: 09/17/18 10:16> Date of Encounter: 09/17/18 Time of Encounter: 10:16 - Assessment and Plan (1) Cecal volvulus Current Visit: Yes Status: Acute This is an 83-year-old female with past medical history significant for sigmoid resection/colostomy in 2017 with colostomy reversal in the same year initially presented with abdominal pain with intercourse the past 2 days. On exam, patient reported mild diffuse tenderness to palpation. CT of the abdomen and pelvis with IV contrast was done which did show findings concerning for acute cecal volvulus with small volume of intra-abdominal and pelvic ascites. There is no signs of perforation. - Patient is now postoperative day #1 status post exploratory celiotomy and right-sided colectomy PLAN: - Continue routine postoperative care - We will advance to clear liquid diet today - Please remove De Leon catheter - We will remove dressing approximately 48 hours postoperatively - Please have patient get out of bed to chair as tolerated - Continue to use incentive spirometry - IV pain and nausea control as needed - Continue IV fluids - Continue Protonix daily Subjective Patient reports: no new complaints, feels better, still having pain, pain is less, voiding w/o difficulty, no flatus, no bowel movement, afebrile Narrative: Patient was seen and examined at bedside this morning. Patient is postoperative day #1 status post exploratory celiotomy and right-sided colectomy done by Dr. Jacob. She remains afebrile without leukocytosis. Vitals are hemodynamically stable. No acute events overnight reported. States that she still does have a little bit of pain, but pain is controlled. Denies any nausea or vomiting. However she also denies any fat as her bowel movements at this point. Patient has not yet had her diet advanced. Bowel sounds are present. She has been using incentive spirometry at bedside. Otherwise no acute complaints at this time. We will advance to clear liquid diet today. We will have patient get out of bed to chair. We will also discontinue De Leon catheter Objective Vital Signs - Last 8 Hours Temp Pulse Resp BP Pulse Ox 09/17/18 07:56 93 09/17/18 06:52 98.5 F 76 20 124/75 97 09/17/18 04:01 98.1 F 77 16 117/65 97 Intake and Output 09/16/18 09/17/1809/17/19 23:59 07:59 15:59 Intake Total 470 / 470 1110 / 1110 100 / 100 Output Total 300 / 300 550 / 550 Balance 170 / 170 560 / 560 100 / 100 Intake: IV Fluids 110 / 110 1110 / 1110 100 / 100 0.9 % Sodium Chloride 1,000 ML 1000 / 1000 @ 80 mls/hr IVC .[id number] [facility] Rx #:[id number] Mefoxin 1,000 MG In Water for inj. (sterile) 10 ML @ 300 mls/ hr IVP Q8HR [facility] Rx#:[id number] Ofirmev 1,000 mg/100 ml 1,000 100 / 100 100 / 100 100 / 100 mg In 100 ml @ 400 mls/hr IVPB Q6H [facility] Rx#:[id number] Oral 360 / 360 0 / 0 Output: Urine 0 / 0 0 / 0 Catheter 300 / 300 550 / 550 Other: Meal NPO Percent of Meal Consumed 0% Weight 47 kg Blood Glucose* 97 91 - General physical appearance well developed, well nourished, no distress, other (Elderly female, resting comfortably at bedside. Reports only mild pain, but pain is controlled. No acute distress.) - Eyes normal ocular movement - ENT atraumatic, normocephalic - Neck Neck exam: trachea midline - Respiratory normal expansion, normal respiratory effort, clear to auscultation - Cardiovascular Cardiovascular exam: Present: RRR, regular rhythm, no murmurs/rubs/gallops - Abdomen Abdomen: Present: bowel sounds present, soft, tender (Only mild diffuse tenderness to palpation) - Incision Incision: Present: clean and dry, intact - Psychiatric oriented to time, oriented to person, oriented to place, speech is normal, memory intact - Labs 09/17/18 06:32 09/17/18 06:32 Diabetes panel 09/17/18 Range/Units 06:32 Sodium 140 (136-145) mEq/L Potassium 4.4 (3.5-5.1) mEq/L Chloride 106 (98-107) mEq/L Carbon Dioxide 27 (23-29) mEq/L BUN 13 (8-23) mg/dL Creatinine 0.52 L (0.60-1.20) mg/dL Glucose 109 H (70-105) mg/dL Calcium 8.2 L (8.6-10.3) mg/dL Calcium panel 09/17/18 Range/Units 06:32 Calcium 8.2 L (8.6-10.3) mg/dL Pituitary panel 09/17/18 Range/Units 06:32 Sodium 140 (136-145) mEq/L Potassium 4.4 (3.5-5.1) mEq/L Chloride 106 (98-107) mEq/L Carbon Dioxide 27 (23-29) mEq/L BUN 13 (8-23) mg/dL Creatinine 0.52 L (0.60-1.20) mg/dL Glucose 109 H (70-105) mg/dL Calcium 8.2 L (8.6-10.3) mg/dL Adrenal panel 09/17/18 Range/Units 06:32 Sodium 140 (136-145) mEq/L Potassium 4.4 (3.5-5.1) mEq/L Chloride 106 (98-107) mEq/L Carbon Dioxide 27 (23-29) mEq/L BUN 13 (8-23) mg/dL Creatinine 0.52 L (0.60-1.20) mg/dL Glucose 109 H (70-105) mg/dL Calcium 8.2 L (8.6-10.3) mg/dL - VTE Documentation of Mechanical Device: Intermittent pneumatic compression device Consult Discharge Plan - Plan Referrals: Maci Vick, CLINICAL DATA ANALYST [Primary Care Provider] - <[place] - Last Filed: 09/17/18 16:01> Date of Encounter: 09/17/18 - Assessment and Plan (1) Cecal volvulus Current Visit: Yes Status: Acute Objective Vital Signs - Last 8 Hours Temp Pulse Resp BP Pulse Ox 09/17/18 15:12 97.7 F 81 18 143/75 93 09/17/18 11:09 99 F 86 20 156/72 94 Intake and Output 09/17/18 09/17/18 09/17/18 07:59 15:59 23:59 Intake Total 1110 / 1110 1440 / 1440 Output Total 550 / 550 Balance 560 / 560 1440 / 1440 Intake: IV Fluids 1110 / 1110 1200 / 1200 0.9 % Sodium Chloride 1,000 ML 1000 / 1000 1000 / 1000 @ 80 mls/hr IVC .[id number] [facility] Rx #:[id number] Mefoxin 1,000 MG In Water for inj. (sterile) 10 ML @ 300 mls/ hr IVP Q8HR [facility] Rx#:[id number] Ofirmev 1,000 mg/100 ml 1,000 100 / 100 200 / 200 mg In 100 ml @ 400 mls/hr IVPB Q6H [facility] Rx#:[id number] Oral 0 / 0 240 / 240 Output: Urine 0 / 0 Catheter 550 / 550 Other: Meal Lunch Percent of Meal Consumed 100% Blood Glucose* 91 93 - Labs 09/17/18 06:32 09/17/18 06:32 Diabetes panel 09/17/18 Range/Units 06:32 Sodium 140 (136-145) mEq/L Potassium 4.4 (3.5-5.1) mEq/L Chloride 106 (98-107) mEq/L Carbon Dioxide 27 (23-29) mEq/L BUN 13 (8-23) mg/dL Creatinine 0.52 L (0.60-1.20) mg/dL Glucose 109 H (70-105) mg/dL Calcium 8.2 L (8.6-10.3) mg/dL Calcium panel 09/17/18 Range/Units 06:32 Calcium 8.2 L (8.6-10.3) mg/dL Pituitary panel 09/17/18 Range/Units 06:32 Sodium 140 (136-145) mEq/L Potassium 4.4 (3.5-5.1) mEq/L Chloride 106 (98-107) mEq/L Carbon Dioxide 27 (23-29) mEq/L BUN 13 (8-23) mg/dL Creatinine 0.52 L (0.60-1.20) mg/dL Glucose 109 H (70-105) mg/dL Calcium 8.2 L (8.6-10.3) mg/dL Adrenal panel 09/17/18 Range/Units 06:32 Sodium 140 (136-145) mEq/L Potassium 4.4 (3.5-5.1) mEq/L Chloride 106 (98-107) mEq/L Carbon Dioxide 27 (23-29) mEq/L BUN 13 (8-23) mg/dL Creatinine 0.52 L (0.60-1.20) mg/dL Glucose 109 H (70-105) mg/dL Calcium 8.2 L (8.6-10.3) mg/dL - Attending Attestation I examined this patient and my medical decision-making was reviewed with the Resident Physician. I agree with the documented findings, disposition and treatment plan as described except to the extent set forth below. I reviewed the above assessment and evaluation and agree with the above plan. Patient doing well since her surgical procedure. Mild tenderness palpation and dressing is in place and intact. She admits to some burping but no flatus. Mild gomez-incisional pain to palpation. Will allow for clear liquids and monitor closely. Continue with IV fluid hydration and allow patient to get up out of bed to chair and ambulate.
[2018-09-17] MEDS: MORPHINE SUL Oral CONC 10 MG/0.5 ML ORAL.SYG SL PRN (11:19)
[2018-09-18] MEDS: Acetaminophen IV 1,000 MG/100 ML INFUS..BTL IVPB SCH ×2 (02:21→08:36)
[2018-09-18] MEDS: 0.9 % Sodium Chloride 1,000 ML IVC SCH ×2 (02:22→17:54)
[2018-09-18] MEDS: *HR* Heparin 5,000 UNIT/ML VIAL SQ SCH ×2 (05:31→17:54)
[2018-09-18] MEDS: Pantoprazole 40 MG VIAL IVP SCH (05:31)
[2018-09-18 06:55] LABS: Basophils % 0.3 %; Eosinophils # 0.1 K/mcL (0.0-0.6); Eosinophils % 1.5 %; Hematocrit 35.5 % (35.3-44.9); Hemoglobin 11.3 g/dL (11.5-15.4); Immature Granulocytes % 0.3 % (0-4); Lymphocytes # 0.6 K/mcL (0.6-4.6); Lymphocytes % 7.4 %; Mean Corpuscular HGB Conc 31.8 g/dL (31.6-35.5); Mean Corpuscular Hemoglobin 31.5 pg (28.0-33.3); Mean Corpuscular Volume 98.9 fL (83.0-100.0); Mean Platelet Volume 9.4 fL (9.4-12.4); Monocytes # 0.9 K/mcL (0.0-1.3); Monocytes % 10.9 %; Neutrophils # 6.9 K/mcL (1.6-8.9); Platelet Count 216 K/mcL (140-400); Red Blood Count 3.59 M/mcL (3.82-4.97); Red Cell Distribution Width 14.2 % (11.5-14.5); Segmented Neutrophils % 79.6 %
[2018-09-18 07:26] LABS: BUN/Creatinine Ratio 15 (6-26); Blood Urea Nitrogen 7 mg/dL (8-23); Calcium 8.3 mg/dL (8.6-10.3); Carbon Dioxide 29 mEq/L (23-29); Chloride 107 mEq/L (98-107); Glucose 150 mg/dL (70-105); Osmolality,Calculated 297 (280-300); Potassium 3.2 mEq/L (3.5-5.1); Sodium 143 mEq/L (136-145); eGFR For Non-African Americans > 60 (> 60)
[2018-09-18] MEDS ORDERED: Potassium Chloride Elixir 20 MEQ/15 ML UDC PO ONE (08:14)
--- NOTE | 2018-09-18 08:17 | AcuteCareSurgery Progress Note ---
<Bk Coe - Last Filed: 09/18/18 09:35> Date of Encounter: 09/18/18 Time of Encounter: 08:13 - Assessment and Plan (1) Cecal volvulus Current Visit: Yes Status: Acute This is an 83-year-old female with past medical history significant for sigmoid resection/colostomy in 2017 with colostomy reversal in the same year initially presented with abdominal pain with intercourse the past 2 days. On exam, patient reported mild diffuse tenderness to palpation. CT of the abdomen and pelvis with IV contrast was done which did show findings concerning for acute cecal volvulus with small volume of intra-abdominal and pelvic ascites. There is no signs of perforation. - Patient is now postoperative day #2 status post exploratory celiotomy and right-sided colectomy PLAN: - Continue routine postoperative care - We will advance to clear liquid diet today; continue with clear liquids today. - Daily dressing changes. Please use Hibiclens on incision site and cover with 4 x 4 gauze - Please have patient get out of bed to chair as tolerated - Continue to use incentive spirometry - IV pain and nausea control as needed - Continue IV fluids - Continue Protonix daily - PT/OT recommendations appreciated Subjective Patient reports: no new complaints, feels better, still having pain, pain is less, tolerating liquids well, voiding w/o difficulty, no flatus, no bowel movement, afebrile Narrative: Patient was seen and examined at bedside this morning. Patient is now postoperative day #2 status post exploratory celiotomy and right-sided colectomy. She remains afebrile without leukocytosis. Vitals remained hemodynamically stable. States that she has no complaints at this time. Was able to sleep well. Denies any nausea, vomiting. Endorses only mild abdominal pain especially at incision sites. She has yet to pass gas or have any bowel movement. She is tolerating clear liquid diet. Incision site looks clean, dry, intact without any signs of infection. However this morning her abdomen does look mildly distended. We will continue to monitor. Continue with clear liquid diet. We will encourage getting out of bed to chair, walking the hallway. We will order PT/OT eval. Objective Vital Signs - Last 8 Hours Temp Pulse Resp BP Pulse Ox 09/18/18 07:33 98.3 F 77 17 154/70 93 09/18/18 04:15 98.3 F 71 17 135/64 93 Intake and Output 09/17/18 09/18/18 09/18/18 23:59 07:59 15:59 Intake Total 100 / 100 1100 / 1100 Balance 100 / 100 1100 / 1100 Intake: IV Fluids 100 / 100 1100 / 1100 0.9 % Sodium Chloride 1,000 ML 1000 / 1000 @ 80 mls/hr IVC .[id number] [facility] Rx #:[id number] Ofirmev 1,000 mg/100 ml 1,000 100 / 100 100 / 100 mg In 100 ml @ 400 mls/hr IVPB Q6H [facility] Rx#:[id number] Other: # Voids 2 Blood Glucose* 88 - General physical appearance well developed, well nourished, no distress, other (This is an elderly female resting comfortably at bedside currently in no acute distress) - Eyes normal ocular movement - ENT no hearing loss, atraumatic, normocephalic - Respiratory normal expansion, normal respiratory effort, clear to auscultation - Cardiovascular Cardiovascular exam: Present: RRR, regular rhythm, no murmurs/rubs/gallops - Abdomen Abdomen: Present: bowel sounds present, soft, distended, tender (Mild diffuse tenderness to palpation) - Incision Incision: Present: clean and dry, intact - Psychiatric oriented to time, oriented to person, oriented to place, speech is normal, memory intact - Labs 09/18/18 06:34 09/18/18 06:34 Diabetes panel 09/18/18 Range/Units 06:34 Sodium 143 (136-145) mEq/L Potassium 3.2 L (3.5-5.1) mEq/L Chloride 107 (98-107) mEq/L Carbon Dioxide 29 (23-29) mEq/L BUN 7 L (8-23) mg/dL Creatinine 0.46 L (0.60-1.20) mg/dL Glucose 150 H (70-105) mg/dL Calcium 8.3 L (8.6-10.3) mg/dL Calcium panel 09/18/18 Range/Units 06:34 Calcium 8.3 L (8.6-10.3) mg/dL Pituitary panel 09/18/18 Range/Units 06:34 Sodium 143 (136-145) mEq/L Potassium 3.2 L (3.5-5.1) mEq/L Chloride 107 (98-107) mEq/L Carbon Dioxide 29 (23-29) mEq/L BUN 7 L (8-23) mg/dL Creatinine 0.46 L (0.60-1.20) mg/dL Glucose 150 H (70-105) mg/dL Calcium 8.3 L (8.6-10.3) mg/dL Adrenal panel 09/18/18 Range/Units 06:34 Sodium 143 (136-145) mEq/L Potassium 3.2 L (3.5-5.1) mEq/L Chloride 107 (98-107) mEq/L Carbon Dioxide 29 (23-29) mEq/L BUN 7 L (8-23) mg/dL Creatinine 0.46 L (0.60-1.20) mg/dL Glucose 150 H (70-105) mg/dL Calcium 8.3 L (8.6-10.3) mg/dL - VTE Documentation of Mechanical Device: Intermittent pneumatic compression device Consult Discharge Plan - Plan Instructions: Colectomy (DC) Additional Instructions: General Surgical Discharge Instructions 1. No pushing, pulling, or lifting greater than 15 lbs for 2-4 weeks (depending upon procedure). 2. You may shower beginning today, but no tub baths, soaking, or swimming for 2 weeks. 3. You may resume driving when you are off narcotics and are safe to react in a car. 4. Take ibuprofen every 8 hours for discomfort. If this does not relieve discomfort, you may take the as needed Percocet. Take narcotics as directed. Do not take more narcotics then directed and do not share your narcotics with any other person. Do not drink alcohol while on narcotics. 5. Take stool softeners (Colace) or a water based laxative (Miralax) while taking narcotics. You may hold for loose stools. 6. Report any fevers greater than 100.5F, increase abdominal discomfort, dr yulia that looks like pus, increased redness or pain at the surgical site, or any vomiting. 7. Report any pain in the calves, shortness of breath, or rapid heartbeat. 8. Follow-up in the office as directed. 9. If you were prescribed antibiotics, do not stop them without talking to your provider. Referrals: Maci Vick CNP [Primary Care Provider] - <Home Don Eliza - Last Filed: 09/18/18 12:06> Date of Encounter: 09/18/18 Objective Vital Signs - Last 8 Hours Temp Pulse Resp BP Pulse Ox 09/18/18 11:53 98.0 F 74 16 166/77 95 09/18/18 07:33 98.3 F 77 17 154/70 93 09/18/18 04:15 98.3 F 71 17 135/64 93 Intake and Output 09/17/18 09/18/18 09/18/18 23:59 07:59 15:59 Intake Total 100 / 100 1100 / 1100 100 / 100 Balance 100 / 100 1100 / 1100 100 / 100 Intake: IV Fluids 100 / 100 1100 / 1100 100 / 100 0.9 % Sodium Chloride 1,000 ML 1000 / 1000 @ 80 mls/hr IVC .[id number] [facility] Rx #:[id number] Ofirmev 1,000 mg/100 ml 1,000 100 / 100 100 / 100 100 / 100 mg In 100 ml @ 400 mls/hr IVPB Q6H [facility] Rx#:[id number] Other: # Voids 2 1 Blood Glucose* 88 - Labs 09/18/18 06:34 09/18/18 06:34 Diabetes panel 09/18/18 Range/Units 06:34 Sodium 143 (136-145) mEq/L Potassium 3.2 L (3.5-5.1) mEq/L Chloride 107 (98-107) mEq/L Carbon Dioxide 29 (23-29) mEq/L BUN 7 L (8-23) mg/dL Creatinine 0.46 L (0.60-1.20) mg/dL Glucose 150 H (70-105) mg/dL Calcium 8.3 L (8.6-10.3) mg/dL Calcium panel 09/18/18 Range/Units 06:34 Calcium 8.3 L (8.6-10.3) mg/dL Pituitary panel 09/18/18 Range/Units 06:34 Sodium 143 (136-145) mEq/L Potassium 3.2 L (3.5-5.1) mEq/L Chloride 107 (98-107) mEq/L Carbon Dioxide 29 (23-29) mEq/L BUN 7 L (8-23) mg/dL Creatinine 0.46 L (0.60-1.20) mg/dL Glucose 150 H (70-105) mg/dL Calcium 8.3 L (8.6-10.3) mg/dL Adrenal panel 09/18/18 Range/Units 06:34 Sodium 143 (136-145) mEq/L Potassium 3.2 L (3.5-5.1) mEq/L Chloride 107 (98-107) mEq/L Carbon Dioxide 29 (23-29) mEq/L BUN 7 L (8-23) mg/dL Creatinine 0.46 L (0.60-1.20) mg/dL Glucose 150 H (70-105) mg/dL Calcium 8.3 L (8.6-10.3) mg/dL - Attending Attestation I examined this patient and my medical decision-making was reviewed with the Resident Physician. I agree with the documented findings, disposition and treatment plan as described except to the extent set forth below. The patient is seen and evaluated on morning rounds with the resident and the acute care surgery team. She is doing quite well after surgery. She has mild abdominal distention. She has normal bowel sounds. Midline wound is in excellent condition with no evidence of erythema. Advance diet. Physical therapy and occupational therapy evaluation in anticipation of rehabilitation placement Home Don MD FACS
[2018-09-18] MEDS: Ondansetron 4 MG/2 ML VIAL IVP PRN (08:36)
[2018-09-18] MEDS: *HR* Metoprolol 5 MG/5 ML VIAL IVP PRN ×2 (18:51→21:49)
[2018-09-18] MEDS ORDERED: Primidone 50 MG TABLET PO SCH (21:00)
[2018-09-19] MEDS: 0.9 % Sodium Chloride 1,000 ML IVC SCH (04:24)
[2018-09-19] MEDS: Pantoprazole 40 MG VIAL IVP SCH (04:25)
[2018-09-19] MEDS: *HR* Heparin 5,000 UNIT/ML VIAL SQ SCH (04:26)
[2018-09-19] MEDS: Ondansetron 4 MG/2 ML VIAL IVP PRN (04:44)
[2018-09-19 07:09] VITALS: BP 130/72
[2018-09-19 07:50] LABS: Basophils % 0.1 %; Eosinophils # 0.2 K/mcL (0.0-0.6); Eosinophils % 2.1 %; Hematocrit 35.4 % (35.3-44.9); Hemoglobin 11.5 g/dL (11.5-15.4); Immature Granulocytes % 0.4 % (0-4); Lymphocytes # 0.6 K/mcL (0.6-4.6); Lymphocytes % 8.9 %; Mean Corpuscular HGB Conc 32.5 g/dL (31.6-35.5); Mean Corpuscular Hemoglobin 32.2 pg (28.0-33.3); Mean Corpuscular Volume 99.2 fL (83.0-100.0); Mean Platelet Volume 9.7 fL (9.4-12.4); Monocytes # 0.7 K/mcL (0.0-1.3); Neutrophils # 5.8 K/mcL (1.6-8.9); Platelet Count 230 K/mcL (140-400); Red Blood Count 3.57 M/mcL (3.82-4.97); Segmented Neutrophils % 79.5 %
[2018-09-19 08:13] LABS: BUN/Creatinine Ratio 22 (6-26); Blood Urea Nitrogen 8 mg/dL (8-23); Calcium 8.1 mg/dL (8.6-10.3); Carbon Dioxide 30 mEq/L (23-29); Chloride 105 mEq/L (98-107); Glucose 99 mg/dL (70-105); Osmolality,Calculated 292 (280-300); Potassium 3.2 mEq/L (3.5-5.1); Sodium 142 mEq/L (136-145); eGFR For Non-African Americans > 60 (> 60)
--- NOTE | 2018-09-19 08:31 | Discharge Summary ---
- NOTES TO OUTPATIENT PROVIDER Notes to Outpatient Provider: Please follow-up with acute care surgery in approximately 2 weeks. Orders not resulted at time of discharge: Pending orders 09/16/18 12:06 Surgical Pathology [PTH] Routine Date of Encounter: 09/19/18 Time of Encounter: 08:31 - Discharge Diagnosis (1) Cecal volvulus Priority: Primary Status: Acute Comments: Patient seen and examined this morning. She is tolerating clear liquid diet without difficulty. She reports no abdominal pain, nausea, vomiting. She did pass gas this morning. If patient tolerates advancing diet, she is ready for discharge. General Surgery Exam Initial Vital Signs Temp Pulse Resp BP Pulse Ox 97.9 F 76 18 161/81 97 09/15/18 22:36 09/15/18 22:36 09/15/18 22:36 09/15/18 22:36 09/15/18 22:36 - General physical appearance well developed, well nourished, no distress, no pain, other (Patient resting comfortably sitting at bedside. No acute distress.) - Eyes normal ocular movement - ENT no hearing loss, atraumatic, normocephalic - Neck trachea midline - Respiratory normal expansion, normal respiratory effort, clear to auscultation - Cardiovascular Cardiovascular exam: Present: RRR, regular rhythm, no murmurs/rubs/gallops - Expanded Cardiovascular Exam Peripheral pulses: 2+: Radial (L), Radial (R) - Abdomen Abdomen general surgery: Present: bowel sounds present, soft, non tender, distended (Mild distention) - Incision Incision: Present: clean and dry, intact - Integumentary Integumentary general surgery: Present: warm and dry, no abnormal pigmentation - Psychiatric Psychiatric general surgery: Present: A&Ox3, appropriate, oriented to person, oriented to place, oriented to time, speech is normal, memory intact - Hospital Course Hospital course: Ms. Olivas is a 83 year old female who past medical history significant for sigmoid resection/colostomy in 2017 with colostomy reversal in the same year who initially presented complaining of acute abdominal pain over the past 2 days prior to presentation. Pain was associated with nausea with minimal vomiting. Initial exam showed mild diffuse tenderness to palpation. 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 Patient was taken urgently to the OR by Dr. Jacob. Exploratory celiotomy and right-sided colectomy was performed. Patient tolerated procedure well. Postoperatively her diet was slowly advanced. She reported minimal pain, and her vitals remained hemodynamically stable. Patient slowly was able to increase her activity. She was evaluated by physical therapy and occupational therapy and had no reported deficits. We will continue to advance her diet today. If she tolerates, would plan on sending her home today. - Time Spent with Patient Total time spent providing and/or coordinating discharge services: Less than 30 minutes - Discharge Medications Prescriptions: New Ondansetron ODT [Zofran ODT] 4 mg SL Q6HR 5 Days #20 tab.rapdis OxyCODONE/APAP 5/325 [Percocet 5/325 MG] 1 each PO Q6HR PRN 5 Days #20 tablet PRN Reason: Pain Docusate [Colace] 100 mg PO BID 14 Days #28 capsule Ibuprofen 800 mg PO Q8H 14 Days #42 tab Omeprazole 20 mg PO QDPC 30 Days #30 tablet.dr Vane Anand Cranberry Fruit Extract [Cranberry] 425 mg PO DAILY Calcium Carbonate/Vitamin D3 [Calcium 600 + Vit D Tablet] 1 tab PO DAILY Biotin 1 mg PO DAILY Aspirin 81 mg PO DAILY Ascorbate Calcium/Bioflavonoid [Piper-C 500 mg Tablet] 1 tab PO DAILY Ascorbate Calcium [Vitamin C] 500 mg PO DAILY Acetylcysteine [R-Dyzefu-w-Cysteine] 600 mg PO DAILY Zinc [Zinc Lozenge] 50 mg PO DAILY Vitamin E 1,000 unit PO DAILY Vit A/Vit C/Vit E/Zinc/Copper [Preservision Areds Tablet] 1 tab PO DAILY Potassium 99 mg PO DAILY [place]-3/Dha/Epa/Fish Oil [Fish Oil 1,000 mg Softgel] 1 tab PO DAILY Magnesium Oxide [Magnesium] 500 mg PO DAILY Lycopene 10 mg PO DAILY Lutein [Natural Lutein] 20 mg PO DAILY Lecithin 1,200 mg PO DAILY Lactobacillus Acidophilus [Acidophilus Probiotic] 1 mg PO DAILY Glucosamine HCl/Chondr Castillo A Na [Cvs Glucosamine-Chondr Tablet] 1 tab PO DAILY Cholecalciferol (D-3) [Vitamin D] 1,000 unit PO DAILY Primidone [Mysoline] 50 mg PO DAILY Acetaminophen [Tylenol] 500 mg PO Q6HR #20 tablet Home Medications: Acetylcysteine [D-Kkfqzd-o-Cysteine] 600 mg PO DAILY 04/20/17 [History] Ascorbate Calcium [Vitamin C] 500 mg PO DAILY 04/20/17 [History] Ascorbate Calcium/Bioflavonoid [Piper-C 500 mg Tablet] 1 tab PO DAILY 04/20/17 [History] Aspirin 81 mg PO DAILY 04/20/17 [History] Biotin 1 mg PO DAILY 04/20/17 [History] Calcium Carbonate/Vitamin D3 [Calcium 600 + Vit D Tablet] 1 tab PO DAILY 1 06/20/16 [History] Cholecalciferol (D-3) [Vitamin D] 1,000 unit PO DAILY 04/20/17 [History] Cranberry Fruit Extract [Cranberry] 425 mg PO DAILY 04/20/17 [History] Glucosamine HCl/Chondr Castillo A Na [Cvs Glucosamine-Chondr Tablet] 1 tab PO DAILY 04/20/17 [History] Lactobacillus Acidophilus [Acidophilus Probiotic] 1 mg PO DAILY 04/20/17 [History] Lecithin 1,200 mg PO DAILY 04/20/17 [History] Lutein [Natural Lutein] 20 mg PO DAILY 04/20/17 [History] Lycopene 10 mg PO DAILY 04/20/17 [History] Magnesium Oxide [Magnesium] 500 mg PO DAILY 04/20/17 [History] [place]-3/Dha/Epa/Fish Oil [Fish Oil 1,000 mg Softgel] 1 tab PO DAILY 04/20/17 [History] Potassium 99 mg PO DAILY 04/20/17 [History] Primidone [Mysoline] 50 mg PO DAILY 04/20/17 [History] Vit A/Vit C/Vit E/Zinc/Copper [Preservision Areds Tablet] 1 tab PO DAILY 04/20/17 [History] Vitamin E 1,000 unit PO DAILY 04/20/17 [History] Zinc [Zinc Lozenge] 50 mg PO DAILY 04/20/17 [History] Acetaminophen [Tylenol] 500 mg PO Q6HR #20 tablet 04/21/17 [Rx] Docusate [Colace] 100 mg PO BID 14 Days #28 capsule 09/19/18 [Rx] Ibuprofen 800 mg PO Q8H 14 Days #42 tab 09/19/18 [Rx] Omeprazole 20 mg PO QDPC 30 Days #30 tablet. 09/19/18 [Rx] Ondansetron ODT [Zofran ODT] 4 mg SL Q6HR 5 Days #20 tab.jamia 09/19/18 [Rx] OxyCODONE/APAP 5/325 [Percocet 5/325 MG] 1 each PO Q6HR PRN 5 Days #20 tablet 09/19/18 [Rx] Allergies/Adverse Reactions: Allergy/AdvReac Type Severity Reaction Status Date / Time naproxen [From Naprosyn] Allergy Gastrointestinal Verified 09/15/18 22:36 Upset Date of admission: 09/16/18 07:12 Primary care physician: Maci Vick CNP Consults: 09/18/18 07:50 Consult to Physical Therapy [CONS] Routine Comment: Evaluate, develop and implement POC Reason for Consult: POD #2 s/p exploratory celiotomy and right sided colectomy Does patient have active BEDREST order?: No Is patient medically & hemodynamically stable?: Yes Patient assessed for mobility or mobilized this visit?: No Discharging clinician: Bk Coe Anticipated date of discharge: 09/19/18 Labs on day of discharge: Labs from last 24 hours 09/19/18 09/19/18 07:01 07:01 WBC 7.2 RBC 3.57 L Hgb 11.5 Hct 35.4 MCV 99.2 MCH 32.2 MCHC 32.5 RDW 14.0 Plt Count 230 MPV 9.7 Immature Gran % 0.4 Seg Neutrophils % 79.5 Lymphocytes % 8.9 Monocytes % 9.0 Eosinophils % 2.1 Basophils % 0.1 Neutrophils # 5.8 Lymphocytes # 0.6 Monocytes # 0.7 Eosinophils # 0.2 Basophils # 0.0 Sodium 142 Potassium 3.2 L Chloride 105 Carbon Dioxide 30 H BUN 8 Creatinine 0.37 L Est GFR ( Amer) > 60 Est GFR (Non-Af Amer) > 60 BUN/Creatinine Ratio 22 Glucose 99 Calculated Osmolality 292 Calcium 8.1 L - Impressions ITS Impressions Abdomen/Pelvis CT 09/16/18 00:26 IMPRESSION: Findings concerning for acute cecal volvulus, with the transition point noted on axial image 127. There is also a small volume of intra-abdominal and pelvic ascites which may be related to this as well. No perforation. There is a nonspecific low-attenuation structure identified within the left hepatic lobe measuring 3.2 x 3.1 cm in size, and 57 Hounsfield units which does not meet criteria for a simple cyst. No internal gas is seen to suggest a definite abscess. Differential considerations would include sequela of prior intra-surgery or trauma, complex cyst or neoplastic process. This would be best assessed with MR imaging of the liver, or if unable to undergo MRI, CT imaging to assess for enhancement. Clustered cystic change noted within the pancreatic head, similar to the previous study. These could possibly be related to IPMNs, and would also be best assessed with multiphase MR imaging. D/ / Scott Davalos MD / Scott Davalos MD Interpreting Provider: Scott Davalos MD - Patient Status Disposition: Home, Self-Care Condition: Good Functional capacity at discharge: independent ambulation Overall status at discharge: patient is progressing back to baseline - Discharge Instructions Instructions: Colectomy (DC) Follow Up With: Maci Vick CNP [Primary Care Provider] - Additional Instructions: General Surgical Discharge Instructions 1. No pushing, pulling, or lifting greater than 15 lbs for 2-4 weeks (depending upon procedure). 2. You may shower beginning today, but no tub baths, soaking, or swimming for 2 weeks. 3. You may resume driving when you are off narcotics and are safe to react in a car. 4. Take ibuprofen every 8 hours for discomfort. If this does not relieve discomfort, you may take the as needed Percocet. Take narcotics as directed. Do not take more narcotics then directed and do not share your narcotics with any other person. Do not drink alcohol while on narcotics. 5. Take stool softeners (Colace) or a water based laxative (Miralax) while taking narcotics. You may hold for loose stools. 6. Report any fevers greater than 100.5F, increase abdominal discomfort, drainage that looks like pus, increased redness or pain at the surgical site, or any vomiting. 7. Report any pain in the calves, shortness of breath, or rapid heartbeat. 8. Follow-up in the office as directed. 9. If you were prescribed antibiotics, do not stop them without talking to your provider. - Diet and Activity Activity: increase activity as tolerated Diet: advance to your usual diet
[2018-09-19] MEDS ORDERED: Potassium Chloride Elixir 20 MEQ/15 ML UDC PO ONE (09:08)
== END 2018-09-19 11:03 | disposition home or self-care (01) | DRG 330 ==
LOC: EMEROOARM 22:27 → 2ANU 22:27
PROVIDERS: ADMIT Surgery; ATTEND Surgery